=== PATIENT | male | born 1940 | race Two or more races ===

== ENCOUNTER 2023-12-21 10:41 | Inpatient (IN) | payer OTHER ==
[~2023-12-21] VITALS: Ht 180.3 cm; Wt 63.5 kg
[2023-12-21] MEDS ORDERED: CEFTRIAXONE SODIUM 2,000 MG VIAL IV ONE (11:15)
[2023-12-21] MEDS ORDERED: 0.9 % SODIUM CHLORIDE 1,000 ML IV SCH ×2 (11:15→18:00)
[2023-12-21] MEDS ORDERED: METHYLPREDNISOLONE SOD SUCC 125 MG VIAL IV ONE (11:15)
[2023-12-21 11:54] LABS: ABG pCO2 96.6 mmHg (35-45)
[2023-12-21 11:55] LABS: BASE EXCESS 21.5 mmol/l; BICARBONATE 52.9 mmol/l (23-25); SaO2 89.2 %; Tco2 55.8 mmol/l; allen test SATISFACTORY; o2 32 %; puncture site RADIAL LEFT
[2023-12-21 12:14] LABS: HEMATOCRIT 32.5 % (39.0-48.0); HEMOGLOBIN 10.4 g/dL (13-16.00); MEAN CELL VOLUME 83.1 fL (80.0-100.00); MEAN CORPUSCULAR HEMOGLOBIN 26.6 pg (27.00-32.0); PLATELET COUNT 190 K/uL (150-450); RED BLOOD COUNT 3.91 M/uL (4.00-6.00); RED CELL DISTRIBUTION WIDTH 13.8 % (11.5-14.5)
[2023-12-21 12:34] LABS: INR 1.01; PARTIAL THROMBOPLASTIN TIME 21.1 SECONDS (22.0-34.0); PROTHROMBIN TIME 10.6 SECONDS (9.0-11.5)
[2023-12-21 12:44] LABS: BILIRUBIN TOTAL 0.2 mg/dL (0.3-1.2); CALCIUM 8.9 mg/dL (8.5-10.1); CREATININE SERUM 0.5 mg/dL (0.70-1.30); GFR 158.8; GLOBULINA 5.4 G/DL (2.4-3.5); TOTAL PROTEIN 8.4 gm/dL (6.4-8.2)
[2023-12-21] MEDS ORDERED: DILANTIN100 MG (12:44)
[2023-12-21] MEDS ORDERED: COZAAR50 MG (12:45)
[2023-12-21] MEDS ORDERED: HYDROCHLOROTH12.5 M2 (12:45)
[2023-12-21] MEDS ORDERED: LIPITOR20 MG (12:45)
--- NOTE | 2023-12-21 12:45 | NUR ---
PTE ALERTA Y ORIENTAOD X3 ACOMPANAOD DE PERSONAL DE AMBULANCIA E HIJA REFIERE QUE TUVO EPISODIOS DE DESORIENTACION. SE OBSERVA EDEMA EN MANO DERECHA.
[2023-12-21 12:57] LABS: POTASSIUM 3.59 mEq/L (3.5-5.1)
[2023-12-21 15:12] LABS: ABG PH 7.419 (7.35-7.45)
[2023-12-21 15:13] LABS: ABG pCO2 82.3 mmHg (35-45)
[2023-12-21 15:14] LABS: ABG PO2 61.6 mmHg (80-100); SaO2 93.1 %
[2023-12-21 15:15] LABS: BICARBONATE 52.1 mmol/l (23-25); Tco2 54.6 mmol/l; allen test SATISFACTORY; o2 30 %; puncture site RADIAL RIGHT
[2023-12-21] MEDS ORDERED: IPRATROPIUM BROMIDE 0.5 MG/2.5 ML AMPUL.NEB IH SCH (17:49)
[2023-12-21] MEDS ORDERED: ACETAMINOPHEN 500 MG GEL..CAP PO PRN (18:00)
[2023-12-21] MEDS ORDERED: ENALAPRILAT DIHYDRATE 1.25 MG/ML VIAL IV PRN (18:00)
[2023-12-21] MEDS ORDERED: BUDESONIDE 0.5 MG/2 ML AMPUL.NEB IH SCH (18:08)
[2023-12-21 21:37] LABS: INR 1.03; PARTIAL THROMBOPLASTIN TIME 21.1 SECONDS (22.0-34.0); PROTHROMBIN TIME 10.8 SECONDS (9.0-11.5)
[2023-12-21] MEDS ORDERED: INSULIN LISPRO 1,000 UNIT/10 ML UNITS SUBCUTANEO PRN (22:00)
[2023-12-21] MEDS ORDERED: DEXTROSE 50 % IN WATER 0.5 G/ML DISP.SYRIN IV PRN (22:00)
[2023-12-21 23:48] LABS: ABG PH 7.413 (7.35-7.45)
[2023-12-21 23:49] LABS: ABG PO2 92.5 mmHg (80-100); ABG pCO2 79.8 mmHg (35-45); BICARBONATE 49.8 mmol/l (23-25); Tco2 52.2 mmol/l
[2023-12-21 23:50] LABS: allen test SATISFACTORY; o2 40 %; puncture site RADIAL RIGHT
[2023-12-21 23:52] LABS: SaO2 97.7 %
[2023-12-22 08:07] LABS: ABG PH 7.394 (7.35-7.45)
[2023-12-22 08:08] LABS: ABG PO2 75.1 mmHg (80-100); ABG pCO2 78.2 mmHg (35-45); BASE EXCESS 17.2 mmol/l; BICARBONATE 46.8 mmol/l (23-25); SaO2 95.5 %; Tco2 49.2 mmol/l
[2023-12-22 08:09] LABS: allen test SATISFACTORY; o2 35 %; puncture site RADIAL RIGHT
[2023-12-22] MEDS ORDERED: DEXTROSE 50 % IN WATER 0.5 G/ML VIAL IV PRN (08:30)
[2023-12-22] MEDS ORDERED: FAMOTIDINE/PF 20 MG in 0.9 % SODIUM CHLORIDE 8 ML IV PUSH SCH (09:00)
[2023-12-22] MEDS ORDERED: ENOXAPARIN SODIUM 40 MG/0.4 ML SYRINGE SUBCUTANEO SCH (09:00)
[2023-12-22] MEDS ORDERED: ATORVASTATIN CALCIUM 20 MG TABLET PO SCH (09:00)
[2023-12-22] MEDS ORDERED: CEFTRIAXONE SODIUM 2,000 MG in 0.9 % SODIUM CHLORIDE 100 ML IV SCH (09:00)
[2023-12-22 12:33] LABS: PH,URINE 5.5 (5.0-8.0); URINE APPEARANCE Cloudy; URINE BILIRRUBIN Negative (NEGATIVE); URINE BLOOD Moderate; URINE COLOR Yellow; URINE GLUCOSE Negative (NEGATIVE); URINE LEUKOCYTE Moderate; URINE NITRATE Positive; URINE UROBILINOGEN 0.2 E.U./dl
[2023-12-22 12:38] LABS: URINE EPITHELIAL CELLS 3.4 uL (0.0-38.8); URINE RBC 157.7 uL (0.0-20.8); URINE WBC 808.9 uL (0.0-23.2)
[2023-12-22 12:46] LABS: URINE BACTERIA > 9821.5 uL (0.0-1933); URINE PROTEIN 100 (NEGATIVE)
[2023-12-22 16:37] LABS: HEMATOCRIT 29.7 % (39.0-48.0); HEMOGLOBIN 9.4 g/dL (13-16.00); MEAN CELL VOLUME 82.4 fL (80.0-100.00); MEAN CORPUSCULAR HEMOGLOBIN 26.1 pg (27.00-32.0); MEAN CORPUSCULAR HGB CONC 31.7 g/dl (32.0-36.0); PLATELET COUNT 184 K/uL (150-450); RED BLOOD COUNT 3.61 M/uL (4.00-6.00); RED CELL DISTRIBUTION WIDTH 14.4 % (11.5-14.5)
[2023-12-22] MEDS ORDERED: AZITHROMYCIN 500 MG in DEXTROSE 5 % IN WATER 250 ML IV SCH (17:00)
[2023-12-22 17:09] LABS: ALBUMIN 2.8 gm/dL (3.4-5.0); BILIRUBIN TOTAL 0.25 mg/dL (0.3-1.2); CALCIUM 8.6 mg/dL (8.5-10.1); CREATININE SERUM 0.45 mg/dL (0.70-1.30); GFR 179.33; GLOBULINA 4.5 G/DL (2.4-3.5); POTASSIUM 4.3 mEq/L (3.5-5.1); TOTAL PROTEIN 7.3 gm/dL (6.4-8.2)
[2023-12-23] MEDS ORDERED: METHYLPREDNISOLONE SOD SUCC 40 MG VIAL IV STA (06:47)
[2023-12-23] MEDS ORDERED: DEXTROSE 50 % IN WATER 0.5 G/ML VIAL IV PRN (11:30)
[2023-12-23] MEDS ORDERED: INSULIN LISPRO 1,000 UNIT/10 ML UNITS SUBCUTANEO PRN (11:30)
[2023-12-23] MEDS ORDERED: IPRATROPIUM BROMIDE 0.5 MG/2.5 ML AMPUL.NEB IH SCH (12:00)
[2023-12-23] MEDS ORDERED: ENALAPRILAT DIHYDRATE 1.25 MG/ML VIAL IV SCH (12:00)
[2023-12-23 12:05] LABS: ABG PH 7.405 (7.35-7.45)
[2023-12-23 12:06] LABS: ABG PO2 67.8 mmHg (80-100); ABG pCO2 64.5 mmHg (35-45); BASE EXCESS 11.7 mmol/l; BICARBONATE 39.5 mmol/l (23-25); SaO2 93.9 %; Tco2 41.5 mmol/l
[2023-12-23 12:07] LABS: allen test SATISFACTORY; o2 31 %; puncture site RADIAL LEFT
[2023-12-23] MEDS ORDERED: FAMOTIDINE/PF 20 MG in 0.9 % SODIUM CHLORIDE 8 ML IV PUSH SCH (17:00)
[2023-12-23] MEDS ORDERED: METHYLPREDNISOLONE SOD SUCC 40 MG VIAL IV SCH (17:00)
[2023-12-24] MEDS ORDERED: METHYLPREDNISOLONE SOD SUCC 40 MG VIAL IV SCH (09:00)
[2023-12-24 10:18] LABS: ABG PO2 84.5 mmHg (80-100); ABG pCO2 70.7 mmHg (35-45); BASE EXCESS 9.4 mmol/l; BICARBONATE 38.2 mmol/l (23-25); Tco2 40.3 mmol/l
[2023-12-24 10:20] LABS: allen test SATISFACTORY; o2 31 %; puncture site RADIAL LEFT
[2023-12-24] MEDS ORDERED: DEXTROSE 50 % IN WATER 0.5 G/ML DISP.SYRIN IV PRN (14:15)
[2023-12-25 06:56] LABS: URINE APPEARANCE Clear; URINE BACTERIA 129.7 uL (0.0-1933); URINE BILIRRUBIN Negative (NEGATIVE); URINE BLOOD Large; URINE COLOR Yellow; URINE EPITHELIAL CELLS 9.8 uL (0.0-38.8); URINE LEUKOCYTE Trace; URINE NITRATE Negative; URINE PROTEIN 30 (NEGATIVE); URINE RBC 1432.9 uL (0.0-20.8); URINE UROBILINOGEN 0.2 E.U./dl; URINE WBC 67.7 uL (0.0-23.2)
[2023-12-25 07:11] LABS: URINE GLUCOSE 500 MG/DL (NEGATIVE)
[2023-12-25 07:33] LABS: HEMATOCRIT 26.7 % (39.0-48.0); MEAN CELL VOLUME 82.9 fL (80.0-100.00); MEAN CORPUSCULAR HGB CONC 31.6 g/dl (32.0-36.0); PLATELET COUNT 198 K/uL (150-450); RED BLOOD COUNT 3.22 M/uL (4.00-6.00); RED CELL DISTRIBUTION WIDTH 14.3 % (11.5-14.5)
[2023-12-25 07:51] LABS: HEMOGLOBIN 8.5 g/dL (13-16.00); MEAN CORPUSCULAR HEMOGLOBIN 26.3 pg (27.00-32.0)
[2023-12-25 08:07] LABS: ALBUMIN 2.5 gm/dL (3.4-5.0); BILIRUBIN TOTAL 0.24 mg/dL (0.3-1.2); CALCIUM 8.5 mg/dL (8.5-10.1); CREATININE SERUM 0.52 mg/dL (0.70-1.30); GFR 151.77; MAGNESIUM 1.9 mg/dL (1.8-2.4); POTASSIUM 4.3 mEq/L (3.5-5.1); TOTAL PROTEIN 6.5 gm/dL (6.4-8.2)
[2023-12-25 08:17] LABS: C-REACTIVE PROTEIN 9.29 MG/DL (0.00-0.29); PHOSPHOROUS 1.6 mg/dL (2.5-4.9)
[2023-12-25 08:51] LABS: ABG PH 7.431 (7.35-7.45); BASE EXCESS 15.3 mmol/l; BICARBONATE 43.3 mmol/l (23-25); SaO2 84.5 %; Tco2 45.3 mmol/l
[2023-12-25 09:11] LABS: ABG PO2 45.4 mmHg (80-100); ABG pCO2 66.5 mmHg (35-45)
[2023-12-25 09:12] LABS: allen test SATISFACTORY; o2 48 %; puncture site RADIAL RIGHT
[2023-12-26 09:36] LABS: ABG PH 7.404 (7.35-7.45); ABG pCO2 71.4 mmHg (35-45)
[2023-12-26 09:37] LABS: ABG PO2 83.9 mmHg (80-100); BICARBONATE 43.7 mmol/l (23-25); SaO2 96.7 %; Tco2 45.9 mmol/l; allen test SATISFACTORY; o2 31 %; puncture site RADIAL LEFT
[2023-12-26] MEDS ORDERED: MEROPENEM 500 MG/VIAL VIAL IV SCH (20:00)
[2023-12-27 09:04] LABS: ABG PH 7.471 (7.35-7.45); ABG pCO2 39.9 mmHg (35-45); BASE EXCESS 4.5 mmol/l; BICARBONATE 28.5 mmol/l (23-25); SaO2 95.5 %; Tco2 29.7 mmol/l; allen test SATISFACTORY; o2 21 %; puncture site RADIAL LEFT
[2023-12-27 09:48] LABS: ABG PH 7.408 (7.35-7.45)
[2023-12-27 09:50] LABS: ABG PO2 117.9 mmHg (80-100); BASE EXCESS 15.8 mmol/l; BICARBONATE 44.5 mmol/l (23-25); SaO2 98.8 %; Tco2 46.8 mmol/l; o2 31 %; puncture site RADIAL RIGHT
[2023-12-27 09:51] LABS: allen test SATISFACTORY
[2023-12-27 09:52] LABS: ABG pCO2 72.2 mmHg (35-45)
[2023-12-28 06:14] LABS: URINE APPEARANCE Clear; URINE BILIRRUBIN Negative (NEGATIVE); URINE BLOOD Large; URINE COLOR Yellow; URINE GLUCOSE Negative (NEGATIVE); URINE LEUKOCYTE Trace; URINE NITRATE Negative; URINE PROTEIN 30 (NEGATIVE); URINE UROBILINOGEN 0.2 E.U./dl
[2023-12-28 06:17] LABS: URINE BACTERIA 212.9 uL (0.0-1933); URINE EPITHELIAL CELLS 6.3 uL (0.0-38.8); URINE RBC 4507.4 uL (0.0-20.8); URINE WBC 26.7 uL (0.0-23.2)
[2023-12-28] MEDS ORDERED: IPRATROPIU0.2 MG/1 M IH (10:24)
[2023-12-28] MEDS ORDERED: LIPITOR20 MG PO (10:25)
[2023-12-28] MEDS ORDERED: COZAAR50 MG PO (10:25)
[2023-12-28] MEDS ORDERED: DILANTIN100 MG PO (10:26)
[2023-12-28] MEDS ORDERED: HYDROCHLOROTH12.5 M2 PO (10:27)
[2023-12-28] MEDS ORDERED: BUDESONIDE0.5 MG/2 M IH (10:27)
[2023-12-28] MEDS ORDERED: CEFDINIR300 MG PO (10:29)
[2023-12-28] MEDS ORDERED: MEDROL8 MG PO (10:30)
[2023-12-28] MEDS ORDERED: [UNRECOGNIZED DRUG - OTHER] PO (10:30)
[2023-12-28] MEDS ORDERED: INTEGRA PLUS C1 EACH PO (10:31)
== END 2023-12-28 17:31 | disposition home or self-care (01) | DRG 189 ==
LOC: ER 10:41 → ICU-2 19:02 → SEC-K 12-24 09:43 → MEDI 12-24 10:52 → MEDJ 12-26 19:26
PROVIDERS: General Practice; Internal Medicine Infectious Disease; Internal Medicine Pulmonary Disease; ADMIT Internal Medicine; ATTEND Internal Medicine
PROC: BW24ZZZ Computerized Tomography (CT Scan) of Chest and Abdomen (ICD-10-PCS; principal; 2023-12-21)
DX: J96.02 Acute respiratory failure with hypercapnia (principal); R09.02 Hypoxemia; J44.9 Chronic obstructive pulmonary disease, unspecified; J96.12 Chronic respiratory failure with hypercapnia